=== PATIENT | male | born 1965 | race Asian ===

== ENCOUNTER 2025-02-28 08:13 | Emergency (ER) | payer OTHER, SELFPAY ==
--- NOTE | 2025-02-28 08:24 | DI.RAD.S_ITS ---
PROCEDURE: XR KNEE RT 3V INDICATIONS: pop sound, pain, unable to bear wgt TECHNIQUE: 3 views of the knee were acquired. COMPARISON: None. FINDINGS: Bones: No fractures or dislocations. Severe degenerative arthritis with at least moderate to severe medial compartment joint space loss--no standing view obtained--and severe patellofemoral joint space loss. No suspicious bony lesions. Soft tissues: Minimal joint effusion. No suspicious soft tissue calcifications. IMPRESSION: 1. No acute bony abnormality noted. 2. Severe degenerative arthritis. Dictated by: Deuce Leija M.D. on 02/28/2025 at 9:03 Approved by: Deuce Leija M.D. on 02/28/2025 at 9:05
[2025-02-28] MEDS: ACETAMINOPHEN 325 MG TABLET 975 MG PO (08:29)
[2025-02-28] MEDS: IBUPROFEN 400 MG TABLET 800 MG PO (08:29)
[2025-02-28 08:31] VITALS: BP 179/92; PULSE 94; RESP 16; TEMP 36.4; O2SAT 99; BMI 34.9
--- NOTE | 2025-02-28 09:29 | ED_ITS ---
HPI - Extremity Injury (Lower) General Chief Complaint: Extremity Injury, Lower Stated Complaint: Right knee pain Time Seen by Provider: 02/28/25 09:20 History of Present Illness HPI Narrative: Patient is a 59-year-old male presents today with significant right knee pain. Reports he was walking up stairs yesterday when he heard a pop. He has been unable to bear weight although he says it is possible it hurts quite bad. He had trouble getting to sleep last night. No numbness Or weakness. He already has crutches. Related Data Home Medications Medication Instructions Recorded Confirmed aspirin 81 mg tablet,delayed 81 mg PO DAILY 06/13/23 06/29/23 release (Adult Aspirin Regimen) cetirizine 10 mg tablet 10 mg PO DAILY PRN 06/13/23 06/29/23 hydrochlorothiazide 25 mg tablet 25 mg PO DAILY 06/13/23 06/29/23 losartan 25 mg tablet 25 mg PO DAILY 06/13/23 06/29/23 simvastatin 20 mg tablet 20 mg PO DAILY 06/13/23 06/29/23 Previous Rx's Medication Instructions Recorded tamsulosin 0.4 mg capsule 0.4 mg PO BEDTIME #90 caps 06/29/23 hydrocodone 5 mg-acetaminophen 325 1 tab PO Q6H PRN pain #10 tabs 02/28/25 mg tablet Allergies Allergy/AdvReac Type Severity Reaction Status Date / Time No Known Drug Allergies Allergy Unverified 06/29/23 08:16 Patient History Medical History Erectile disorder BPH w urinary obs/LUTS Hematuria History of high blood pressure Family History Family/Other Hyperlipidemia Hypertension Social History marital status: number of children: 4 Exam Initial Vital Signs Initial Vital Signs: Vital Signs Temperature 97.6 F 02/28/25 08:31 Pulse Rate 94 H 02/28/25 08:31 Respiratory Rate 16 02/28/25 08:31 Blood Pressure 179/92 H 02/28/25 08:31 Pulse Oximetry 99 02/28/25 08:31 Oxygen Delivery Method Room Air 02/28/25 08:31 GENERAL: Well-appearing, well-nourished and in no acute distress. CARDIOVASCULAR: peripheral pulses in tact, cap refill <2 sec RESPIRATORY: No respiratory distress, speaks in full sentences without difficulty EXTREMITIES: Normal range of motion, no clubbing or edema. Neurovascularly intact Right lower extremity more tender on a anterior drawer test no significant lateral laxity distal pedal pulse intact NEUROLOGICAL: Cranial nerves II through XII grossly intact. Normal gait and speech. SKIN: Warm, dry, no petechiae, no rashes or lesions. Course Orders Ordered: ED Orders 02/28/25 08:24 XR knee RT 3V Stat Discontinued Medications Acetaminophen (Acetaminophen 325 Mg Tablet) 975 mg PO NOW ONE Stop: 02/28/25 08:25 Last Admin: 02/28/25 08:29 Dose: 975 mg Documented By: ELICIA Ibuprofen (Ibuprofen 400 Mg Tablet) 800 mg PO NOW ONE Stop: 02/28/25 08:25 Last Admin: 02/28/25 08:29 Dose: 800 mg Documented By: ELICIA Vital Signs Vital signs: Vital Signs - 8 hr 02/28/25 08:31 02/28/25 09:44 Temperature 97.6 F Pulse Rate 94 H 85 Respiratory Rate 16 16 Blood Pressure 179/92 H 171/94 H Pulse Oximetry 99 97 Oxygen Delivery Method Room Air Room Air MDM - Extremity Injury (Lower) Imaging Data Extremity x-ray #1: Radiologist's Impression: PROCEDURE: XR KNEE RT 3V INDICATIONS: pop sound, pain, unable to bear wgt TECHNIQUE: 3 views of the knee were acquired. COMPARISON: None. FINDINGS: Bones: No fractures or dislocations. Severe degenerative arthritis with at least moderate to severe medial compartment joint space loss--no standing view obtained--and severe patellofemoral joint space loss. No suspicious bony lesions. Soft tissues: Minimal joint effusion. No suspicious soft tissue calcifications. IMPRESSION: 1. No acute bony abnormality noted. 2. Severe degenerative arthritis. Dictated by: Deuce Leija M.D. on 02/28/2025 at 9:[address] [facility] Narrative Medical decision making narrative: patient 59-year-old male presenting today with right knee sprain. Carter a pop after going up stairs. He does have some weakness on anterior drawer test. Neurovascularly intact. Given a knee immobilizer crutches recommend outpatient follow-up for MRI. Discharge Plan Departure Patient Disposition: Home Clinical Impression: Right knee sprain Instructions: DI for Knee Sprain Activity Restrictions/Additional Instructions: *You have been diagnosed with right knee sprain *What to do: at this time wear knee immobilizer while active and while sleeping. You do need an outpatient MRI *Continue to take medications as directed Motrin 600 mg every 6 hours for [id number] pain Elrod 1 tablet at night for severe pain Tylenol 650-1000 mg every 6 hours for [id number] pain *Follow up with your primary care provider in 2-3 days or call [phone] [facility], [facility] ( [place], call before you drive) *Return to ER if you should have increasing pain weakness numbness [or] any new, worsening or concerning symptoms CONTROLLED SUBSTANCE DISCHARGE (Narcotoic/benzodiazepine/Flexeril/Phenergan) 1. You have been prescribed narcotic medications, it does have acetaminophen/Tylenol/paracetamol in it, DO NOT TAKE MORE THAN 4,00mg in 24 hours of Tylenol. TRAMADOL DOES NOT CONTAIN TYLENOL 2. Please understand that we cannot provide further refills of narcotics, benzodiazepines or controlled substances through the ED and her pain management will need to be through your provider. 3. While on these medications you cannot drive or operate heavy machinery. 4. You cannot sign legal documents or perform any duties such as this. 5. As long as you're taking opiate pain medications he should also be taking a stool softener such as Colace, Dulcolax, MiraLAX or prune juice, to help avoid constipation. Prescriptions: New hydrocodone-acetaminophen 5-325 mg tablet 1 tab PO Q6H PRN (Reason: pain) Qty: 10 0RF No Action tamsulosin 0.4 mg capsule 0.4 mg PO BEDTIME Qty: 90 3RF simvastatin 20 mg tablet 20 mg PO DAILY hydrochlorothiazide 25 mg tablet 25 mg PO DAILY losartan 25 mg tablet 25 mg PO DAILY cetirizine 10 mg tablet 10 mg PO DAILY PRN aspirin [Adult Aspirin Regimen] 81 mg tablet,delayed release (DR/EC) 81 mg PO DAILY Referrals: ProviderThai [Primary Care Provider] - Stand Alone Forms: Patient Portal/API/Survey
[2025-02-28 09:44] VITALS: BP 171/94; PULSE 85; RESP 16; O2SAT 97
== END 2025-02-28 09:45 | disposition home or self-care (01) ==
PROVIDERS: Emergency Provider Emergency Medicine
DX: S83.91XA Sprain of unspecified site of right knee, initial encounter (principal); Y93.01 Activity, walking, marching and hiking
CPT/HCPCS: 73562; 99283